=== PATIENT | female | born 2000 | race Caucasian/White ===

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

== ENCOUNTER 2021-07-05 17:57 | Emergency (ER) | payer MEDICAID, OTHER ==
[~2021-07-05] VITALS: Ht 157.5 cm; Wt 100.0 kg
[~2021-07-05 17:57] MED LIST changes: -VENL150C2 PO; +VENL150C4 PO
[2021-07-05] MEDS ORDERED: LIDOCAINE 5% TRANSDERMAL PATCH TD ONE (19:45)
[2021-07-05] MEDS ORDERED: BACL10TA PO (19:59)
[2021-07-05 20:16] VITALS: BP 135/88
== END 2021-07-05 20:39 | disposition home or self-care (01) ==
LOC: EMS 17:57
DX: M25.512 Pain in left shoulder (principal); F10.20 Alcohol dependence, uncomplicated; F12.10 Cannabis abuse, uncomplicated; Z87.19 Personal history of other diseases of the digestive system
CPT/HCPCS: 99283